=== PATIENT | female | born 1950 | race Caucasian/White ===

== ENCOUNTER 2017-02-24 12:42 | Inpatient (IN) | payer MEDICARE ==
[2017-02-24] MEDS ORDERED: ONDANSETRON HCL INJ/PF 4 MG/2 ML SDV IV ONE (13:36)
[2017-02-24] MEDS ORDERED: MORPHINE SULFATE 10 MG/ML INJ IV ONE (13:36)
--- NOTE | 2017-02-24 13:37 | ER Document Report ---
ED Medical Screen (RME) - General Chief Complaint: Nausea/Vomiting/Diarrhea Stated Complaint: VOMITING/DIARRHEA/WEAKNESS Information source: Patient Notes: 66-year-old female who had a colonoscopy 7 years ago which was normal presents with complaints of intermittent abdominal cramping sensation with bloody diarrhea. Patient notes she was treated for pneumonia with 10 days of antibiotics. Denies any fevers Bright red stool I have greeted and performed a rapid initial assessment of this patient. A comprehensive ED assessment and evaluation of the patient, analysis of test results and completion of the medical decision making process will be conducted by additional ED providers. PHYSICAL EXAMINATION: GENERAL: Well-appearing, well-nourished and in no acute distress. HEAD: Atraumatic, normocephalic. EYES: Pupils equal round extraocular movements intact, conjunctiva are normal. ENT: Nares patent NECK: Normal range of motion LUNGS: No respiratory distress Musculoskeletal: Normal range of motion NEUROLOGICAL: Normal speech, normal gait. PSYCH: Normal mood, normal affect. SKIN: Warm, Dry, normal turgor, no rashes or lesions noted. TRAVEL OUTSIDE OF THE [place] IN LAST 30 DAYS: No - Related Data Allergies/Adverse Reactions: No Known Allergies Allergy (Verified 02/24/17 13:21) Past Medical History Renal/ Medical History: Denies: Hx Peritoneal Dialysis Physical Exam - Vital signs Vitals: Temp Pulse Resp BP Pulse Ox 98.2 F 109 H 24 H 188/82 H 95 02/24/17 12:52 02/24/17 12:52 02/24/17 12:52 02/24/17 12:52 02/24/17 12:52 Course - Vital Signs Vital signs: Temp Pulse Resp BP Pulse Ox 98.2 F 109 H 24 H 188/82 H 95 02/24/17 12:52 02/24/17 12:52 02/24/17 12:52 02/24/17 12:52 02/24/17 12:52
[2017-02-24 14:11] LABS: ABSOLUTE LYMPHOCYTES (AUTO) 1.1 10^3/uL (0.5-4.7); ABSOLUTE MONOCYTES (AUTO) 0.5 10^3/uL (0.1-1.4); ABSOLUTE NEUT (AUTO) 15.4 10^3/uL (1.7-8.2); BASOPHILS % (AUTO) 0.2 % (0-2); HEMATOCRIT 43.6 % (36.0-47.0); HEMOGLOBIN 14.3 g/dL (12.0-15.5); HGB HCT DIFFERENCE -0.7; LYMPHOCYTES % (AUTO) 6.3 % (13-45); MEAN CORPUSCULAR HEMOGLOBIN 28.2 pg (27.0-33.4); MEAN CORPUSCULAR HGB CONC 32.8 g/dL (32.0-36.0); MEAN CORPUSCULAR VOLUME 86 fl (80-97); MONOCYTES % (AUTO) 3.2 % (3-13); RED BLOOD COUNT 5.08 10^6/uL (3.72-5.28); RED CELL DISTRIBUTION WIDTH 13.7 % (11.5-14.0); SEGMENTED NEUTROPHILS % (AUTO) 90.3 % (42-78)
--- NOTE | 2017-02-24 14:14 | ER Document Report ---
ED GI/ - General Mode of Arrival: Ambulatory Information source: Patient TRAVEL OUTSIDE OF THE [place] IN LAST 30 DAYS: No - HPI Patient complains to provider of: Vomiting Onset: Yesterday Timing/Duration: Sudden, Persistent Quality of pain: Cramping Associated symptoms: Diarrhea, Nausea, Vomiting, Other - Cramping <JULIO CHAVEZ - Last Filed: 02/24/17 14:09> <KRISTIN WHITT - Last Filed: 02/24/17 17:34> - General Chief Complaint: Nausea/Vomiting/Diarrhea Stated Complaint: VOMITING/DIARRHEA/WEAKNESS Notes: Patient is 66-year-old female presenting to the emergency department concerned of vomiting and diarrhea, onset last night. Patient describes her diarrhea as jellylike with blood. Patient also states she is experiencing some abdominal cramping. Patient states Lortab just felt like this before is when she had food poisoning. Patient also reports that she completed 10 days of antibiotics one week ago for pneumonia. Patient cannot remember the name of this antibiotic. (JULIO CHAVEZ) I contacted [facility] pharmacy and found the antibiotic she was on was doxycycline. (KRISTIN WHITT) - Related Data Allergies/Adverse Reactions: No Known Allergies Allergy (Verified 02/24/17 13:21) Past Medical History - General Information source: Patient - Social History Smoking Status: Never Smoker Frequency of alcohol use: None Family History: Reviewed & Not Pertinent Patient has suicidal ideation: No Patient has homicidal ideation: No - Past Medical History Cardiac Medical History: Reports: Hx Hypertension Endocrine Medical History: Reports: Hx Diabetes Mellitus Type 2 Renal/ Medical History: Denies: Hx Peritoneal Dialysis Past Surgical History: Reports: Hx Hysterectomy - And Bladder sling 2006 <JULIO CHAVEZ - Last Filed: 02/24/17 14:09> Review of Systems - Review of Systems Constitutional: No symptoms reported EENT: No symptoms reported Cardiovascular: No symptoms reported Respiratory: No symptoms reported Gastrointestinal: See HPI, Abdominal pain - Cramping, Diarrhea, Nausea, Vomiting Genitourinary: No symptoms reported Female Genitourinary: No symptoms reported Musculoskeletal: No symptoms reported Skin: No symptoms reported Hematologic/Lymphatic: No symptoms reported Neurological/Psychological: No symptoms reported -: Yes All other systems reviewed and negative <JULIO CHAVEZ - Last Filed: 02/24/17 14:09> Physical Exam - General General appearance: Alert - HEENT Head: Normocephalic, Atraumatic Eyes: Normal Pupils: PERRL - Respiratory Respiratory status: No respiratory distress Chest status: Nontender Breath sounds: Normal Chest palpation: Normal - Cardiovascular Rhythm: Extrasystoles Heart sounds: Normal auscultation Murmur: No - Abdominal Inspection: Obese - Soft Bowel sounds: Hyperactive Tenderness: Nontender - Back Back: Normal, Nontender - Extremities General upper extremity: Normal inspection, Nontender General lower extremity: Normal inspection, Nontender - Neurological Neuro grossly intact: Yes Cognition: Normal Orientation: AAOx4 [place] Coma Scale Eye Opening: Spontaneous [place] Coma Scale Verbal: Oriented [place] Coma Scale Motor: Obeys Commands Teodoro Coma Scale Total: 15 Speech: Normal - Psychological Associated symptoms: Normal affect, Normal mood - Skin Skin Temperature: Warm Skin Moisture: Dry Skin Color: Normal <JULIO CHAVEZ - Last Filed: 02/24/17 14:09> Course - Laboratory Result Diagrams: 02/24/17 13:40 02/24/17 13:40 <JULIO CHAVEZ - Last Filed: 02/24/17 14:09> - Laboratory Result Diagrams: 02/24/17 13:40 02/24/17 13:40 - Diagnostic Test Radiology reviewed: Image reviewed, Reports reviewed - Colitis involving the distal transverse colon, splenic flexure, and proximal descending colon. There is moderate atherosclerotic irregularity at the SMA origin with about 50% diameter narrowing. About 75% narrowing of the proximal left renal artery. - Consults Dr. Salinas Time consulted: 17:15 Consulted provider: will come to ER <KRISTIN WHITT - Last Filed: 02/24/17 17:34> - Vital Signs Vital signs: Temp Pulse Resp BP Pulse Ox 98.2 F 109 H 24 H 188/82 H 95 02/24/17 12:52 02/24/17 12:52 02/24/17 12:52 02/24/17 12:52 02/24/17 12:52 - Laboratory Laboratory results interpreted by me: 02/24/17 02/24/17 13:40 13:40 WBC 17.0 H Seg Neutrophils % 90.3 H Lymphocytes % 6.3 L Absolute Neutrophils 15.4 H BUN 21 H Glucose 219 H Discharge <JULIO CHAVEZ - Last Filed: 02/24/17 14:09> - Discharge Admitting Provider: Hospitalist Unit Admitted: Medical Floor <KRISTIN WHITT - Last Filed: 02/24/17 17:34> - Discharge Clinical Impression: Colitis, Atherosclerosis of superior mesenteric artery, Renal artery stenosis Condition: Stable Disposition: ADMITTED INPATIENT Scribe Documentation - Scribe Written by Scribe:: Julio Chavez 02/24/2017 1409 acting as scribe for :: Marine <JULIO CHAVEZ - Last Filed: 02/24/17 14:09>
[2017-02-24] MEDS: NORMAL SALINE 1000 ML 1,000 ML IV PRN ×3 (14:21→21:40)
[2017-02-24 14:33] LABS: ALANINE AMINOTRANSFERASE 34 U/L (9-52); ALBUMIN 4.8 g/dL (3.5-5.0); ALKALINE PHOSPHATASE 78 U/L (38-126); ANION GAP 17 (5-19); ASPARTATE AMINO TRANSFERASE 20 U/L (14-36); BILIRUBIN,DIRECT 0.4 mg/dL (0.0-0.4); BILIRUBIN,TOTAL 0.7 mg/dL (0.2-1.3); BLOOD UREA NITROGEN 21 mg/dL (7-20); CALCIUM 10.2 mg/dL (8.4-10.2); CARBON DIOXIDE 24 mmol/L (22-30); CHLORIDE 102 mmol/L (98-107); CREATININE RESULT 0.77 mg/dL (0.52-1.25); GLUCOSE 219 mg/dL (75-110); POTASSIUM 4.9 mmol/L (3.6-5.0); SODIUM 142.5 mmol/L (137-145); TOTAL PROTEIN 8.2 g/dL (6.3-8.2)
[2017-02-24] MEDS ORDERED: HYDRALAZINE HCL INJ/PF 20 MG/1 ML SDV IV ONE ×2 (14:51→15:52)
[2017-02-24] MEDS ORDERED: METRONIDAZOLE 500 MG/NS RTU 100 ML IV ONE (17:17)
[2017-02-24] MEDS ORDERED: LEVOFLOXACIN 750 MG/D5W RTU 150 ML IV ONE (17:17)
[2017-02-24] MEDS ORDERED: NORMAL SALINE 1000 ML 1,000 ML IV ONE (17:18)
[2017-02-24] MEDS ORDERED: ONDANSETRON HCL INJ/PF 4 MG/2 ML SDV ONE (18:11)
[2017-02-24] MEDS ORDERED: HYDRALAZINE HCL INJ/PF 20 MG/1 ML SDV IV PRN (18:55)
[2017-02-24] MEDS ORDERED: SODIUM CHLORIDE NASAL SPRAY 44 ML NASL PRN (22:11)
[2017-02-24] MEDS ORDERED: OXYMETAZOLINE HCL 0.05% NASAL SPRAY 15 ML BOTTLE ONE (22:26)
[2017-02-24] MEDS ORDERED: SODIUM CHLORIDE NASAL SPRAY 44 ML ONE (22:38)
[2017-02-24] MEDS: PANTOPRAZOLE SODIUM 40 MG VIAL IV SCH (23:14)
[2017-02-25 00:04] LABS: APPEARANCE,URINE CLEAR; BILIRUBIN,URINE NEGATIVE (NEGATIVE); GLUCOSE, URINE NEGATIVE (NEGATIVE); KETONES,URINE NEGATIVE (NEGATIVE); LEUKOCYTE ESTERASE,URINE LARGE (NEGATIVE); NITRITE,URINE NEGATIVE (NEGATIVE); PROTEIN,URINE NEGATIVE (NEGATIVE); URINE SPECIFIC GRAVITY 1.035; UROBILINOGEN,URINE NEGATIVE mg/dL (<2.0)
[2017-02-25] MEDS: METRONIDAZOLE 500 MG/NS RTU 100 ML IV SCH ×5 (00:49→23:09)
[2017-02-25] MEDS: ACETAMINOPHEN 325 MG TABLET PO PRN ×3 (03:09→21:41)
[2017-02-25 06:45] LABS: ABSOLUTE LYMPHOCYTES (AUTO) 2.1 10^3/uL (0.5-4.7); ABSOLUTE MONOCYTES (AUTO) 1.7 10^3/uL (0.1-1.4); ABSOLUTE NEUT (AUTO) 15.1 10^3/uL (1.7-8.2); BASOPHILS % (AUTO) 0.1 % (0-2); HEMATOCRIT 38.3 % (36.0-47.0); HEMOGLOBIN 12.5 g/dL (12.0-15.5); HGB HCT DIFFERENCE -0.8; LYMPHOCYTES % (AUTO) 11.3 % (13-45); MEAN CORPUSCULAR HEMOGLOBIN 27.9 pg (27.0-33.4); MEAN CORPUSCULAR HGB CONC 32.6 g/dL (32.0-36.0); MEAN CORPUSCULAR VOLUME 86 fl (80-97); MONOCYTES % (AUTO) 9.1 % (3-13); RED BLOOD COUNT 4.47 10^6/uL (3.72-5.28); RED CELL DISTRIBUTION WIDTH 13.8 % (11.5-14.0); SEGMENTED NEUTROPHILS % (AUTO) 79.5 % (42-78); WHITE BLOOD COUNT 18.9 10^3/uL (4.0-10.5)
[2017-02-25 06:54] LABS: PARTIAL THROMBOPLASTIN TIME 29.6 SEC (23.5-35.8); PROTHROMBIN TIME 13.9 SEC (11.4-15.4)
[2017-02-25 07:12] LABS: ALANINE AMINOTRANSFERASE 26 U/L (9-52); ALBUMIN 3.7 g/dL (3.5-5.0); ALKALINE PHOSPHATASE 52 U/L (38-126); ANION GAP 13 (5-19); ASPARTATE AMINO TRANSFERASE 19 U/L (14-36); BILIRUBIN,DIRECT 0.1 mg/dL (0.0-0.4); BILIRUBIN,TOTAL 0.6 mg/dL (0.2-1.3); BLOOD UREA NITROGEN 12 mg/dL (7-20); CALCIUM 9.2 mg/dL (8.4-10.2); CARBON DIOXIDE 23 mmol/L (22-30); CHLORIDE 107 mmol/L (98-107); CHOLESTEROL 254.94 mg/dL (0-200); CREATININE RESULT 0.76 mg/dL (0.52-1.25); Direct HDL 40 mg/dL (>40); GLUCOSE 165 mg/dL (75-110); POTASSIUM 4.2 mmol/L (3.6-5.0); SODIUM 142.8 mmol/L (137-145); TOTAL PROTEIN 6.3 g/dL (6.3-8.2); TRIGLYCERIDES 193 mg/dL (<150)
[2017-02-25 07:23] LABS: DIRECT LDL 152 mg/dL (<100)
[2017-02-25 07:25] LABS: VLDL CHOLESTEROL 38.6 mg/dL (10-31)
--- NOTE | 2017-02-25 07:45 | EKG REPORT ---
SEVERITY:- ABNORMAL ECG - SINUS TACHYCARDIA : Confirmed by: Bee Plummer 25-Feb-2017 07:43:57
[2017-02-25] MEDS ORDERED: DEXTROSE 40% GEL 15 GM TUBE PO PRN ×2 (08:00)
[2017-02-25] MEDS ORDERED: DEXTROSE 50%-WATER 25 GM/50 ML DISP.SYRIN IV PRN ×2 (08:00)
[2017-02-25] MEDS ORDERED: GLUCAGON,HUMAN RECOMB 1 MG INJ SUBCUT PRN (08:00)
--- NOTE | 2017-02-25 08:16 | PDOC H&P ---
History of Present Illness Admission Date/PCP: 02/24/17 18:49 Patient complains of: abdominal pain and rectal bleeding History of Present Illness: DAY GARAY is a 66 year old female Presented with 24-hour history of bloody diarrhea and abdominal pain Upon evaluation in the ED patient was diagnosed of ischemic colitis and subsequently admitted under hospitalist service for further evaluation and care Past Medical History Cardiac Medical History: Reports: Hypertension Endocrine Medical History: Reports: Diabetes Mellitus Type 2 Past Surgical History Past Surgical History: Reports: Hysterectomy - And Bladder sling 2006, Other - Last colonoscopy was 7 years ago was normal Social History Smoking Status: Never Smoker Frequency of Alcohol Use: Rare Hx Recreational Drug Use: No - Advance Directive Resuscitation Status: Full Code Surrogate healthcare decision maker:: Her Khoa Family History Family History: Reviewed & Not Pertinent Parental Family History Reviewed: Yes Children Family History Reviewed: Yes Sibling(s) Family History Reviewed.: Yes Medication/Allergy Home Medications: Lisinopril [Prinivil 40 mg Tablet] 40 mg PO QAM 02/24/17 Metformin HCl [Metformin HCl ER] 1,000 mg PO BID 02/24/17 Allergies/Adverse Reactions: No Known Allergies Allergy (Verified 02/24/17 13:21) Review of Systems Constitutional: ABSENT: chills, fever(s), headache(s), weight gain, weight loss Eyes: ABSENT: visual disturbances Ears: ABSENT: hearing changes Cardiovascular: ABSENT: chest pain, dyspnea on exertion, edema, orthropnea, palpitations Respiratory: ABSENT: cough, hemoptysis Gastrointestinal: PRESENT: as per HPI, abdominal pain, diarrhea, hematochezia, nausea. ABSENT: constipation, hematemesis, vomiting Genitourinary: ABSENT: dysuria, hematuria Musculoskeletal: ABSENT: joint swelling Integumentary: ABSENT: rash, wounds Neurological: ABSENT: abnormal gait, abnormal speech, confusion, dizziness, focal weakness, syncope Psychiatric: ABSENT: anxiety, depression, homidical ideation, suicidal ideation Endocrine: ABSENT: cold intolerance, heat intolerance, polydipsia, polyuria Hematologic/Lymphatic: ABSENT: easy bleeding, easy bruising Physical Exam Vital Signs: Temp Pulse Resp BP Pulse Ox 98.8 F 94 20 146/40 H 97 02/25/17 04:09 02/25/17 06:39 02/25/17 04:09 02/25/17 06:35 02/25/17 04:09 Intake & Output 02/24/17 02/25/17 02/26/17 00:59 00:59 00:59 Intake Total 0 Output Total 300 800 Balance -300 -800 Weight 73.2 kg General appearance: PRESENT: mild distress, well-developed, well-nourished, other - She does look ill Head exam: PRESENT: atraumatic, normocephalic Eye exam: PRESENT: conjunctiva pink, EOMI, PERRLA. ABSENT: scleral icterus Ear exam: PRESENT: normal external ear exam Mouth exam: PRESENT: moist, tongue midline Neck exam: ABSENT: carotid bruit, JVD, lymphadenopathy, thyromegaly Respiratory exam: PRESENT: clear to auscultation sorin. ABSENT: rales, rhonchi, wheezes Cardiovascular exam: PRESENT: RRR. ABSENT: diastolic murmur, rubs, systolic murmur Pulses: PRESENT: normal dorsalis pedis pul Vascular exam: PRESENT: normal capillary refill GI/Abdominal exam: PRESENT: normal bowel sounds, soft, tenderness. ABSENT: distended, guarding, mass, organolmegaly, rebound Rectal exam: PRESENT: deferred Extremities exam: PRESENT: full ROM. ABSENT: calf tenderness, clubbing, pedal edema Neurological exam: PRESENT: alert, awake, oriented to person, oriented to place , oriented to time, oriented to situation, CN II-XII grossly intact. ABSENT: motor sensory deficit Psychiatric exam: PRESENT: appropriate affect, normal mood. ABSENT: homicidal ideation, suicidal ideation Skin exam: PRESENT: dry, intact, warm. ABSENT: cyanosis, rash Results Laboratory Results: 02/25/17 06:09 02/25/17 06:09 02/24/17 02/25/17 02/25/17 23:00 06:09 06:09 WBC 18.9 H RBC 4.47 Hgb 12.5 Hct 38.3 MCV 86 MCH 27.9 MCHC 32.6 RDW 13.8 Plt Count 266 Seg Neutrophils % 79.5 H Lymphocytes % 11.3 L Monocytes % 9.1 Eosinophils % 0.0 Basophils % 0.1 Absolute Neutrophils 15.1 H Absolute Lymphocytes 2.1 Absolute Monocytes 1.7 H Absolute Eosinophils 0.0 Absolute Basophils 0.0 Sodium 142.8 Potassium 4.2 Chloride 107 Carbon Dioxide 23 Anion Gap 13 BUN 12 Creatinine 0.76 Est GFR ( Amer) > 60 Est GFR (Non-Af Amer) > 60 Glucose 165 H Calcium 9.2 Total Bilirubin 0.6 AST 19 ALT 26 Alkaline Phosphatase 52 Total Protein 6.3 Albumin 3.7 Triglycerides 193 H Cholesterol 254.94 H LDL Cholesterol Direct 152 H VLDL Cholesterol 38.6 H HDL Cholesterol 40 TSH Urine Color STRAW Urine Appearance CLEAR Urine pH 5.0 Ur Specific [place] 1.035 Urine Protein NEGATIVE Urine Glucose (UA) NEGATIVE Urine Ketones NEGATIVE Urine Blood SMALL H Urine Nitrite NEGATIVE Ur Leukocyte Esterase LARGE H Urine WBC (Auto) 20 Urine RBC (Auto) 3 02/25/17 06:09 WBC RBC Hgb Hct MCV MCH MCHC RDW Plt Count Seg Neutrophils % Lymphocytes % Monocytes % Eosinophils % Basophils % Absolute Neutrophils Absolute Lymphocytes Absolute Monocytes Absolute Eosinophils Absolute Basophils Sodium Potassium Chloride Carbon Dioxide Anion Gap BUN Creatinine Est GFR ( Amer) Est GFR (Non-Af Amer) Glucose Calcium Total Bilirubin AST ALT Alkaline Phosphatase Total Protein Albumin Triglycerides Cholesterol LDL Cholesterol Direct VLDL Cholesterol HDL Cholesterol TSH 5.37 H Urine Color Urine Appearance Urine pH Ur Specific [place] Urine Protein Urine Glucose (UA) Urine Ketones Urine Blood Urine Nitrite Ur Leukocyte Esterase Urine WBC (Auto) Urine RBC (Auto) Impressions: Abdomen/Pelvis CT 02/24/17 00:00 IMPRESSION: Colitis involving the distal transverse colon, splenic flexure, proximal descending colon. Assessment & Plan - Diagnosis (1) Acute ischemic colitis Is this a current diagnosis for this admission?: Yes (2) Hypertension Qualifiers: Hypertension type: essential hypertension Qualified Code(s): I10 - Essential (primary) hypertension Is this a current diagnosis for this admission?: Yes (3) Atherosclerosis of superior mesenteric artery Is this a current diagnosis for this admission?: Yes (4) Renal artery stenosis Is this a current diagnosis for this admission?: Yes - Time Time Spent with patient: We will admit the patient to IMCU ;she will be monitored patient will be started on Cipro Flagyl We will treat her hypertension with keep her blood pressure systolic over 160 Patient will be treated with IV fluids clear liquids as tolerated Dr. Kirby gastroenterology will see patient in a.m. Patient will need to be referred to vascular surgery as an outpatient regarding the renal artery stenosis Time Spent: Greater than 70 Minutes - Inpatient Certification Based on my medical assessment, after consideration of the patient's comorbidities, presenting symptoms, or acuity I expect that the services needed warrant INPATIENT care.: Yes I certify that my determination is in accordance with my understanding of Medicare's requirements for reasonable and necessary INPATIENT services [42 CFR 412.3e].: Yes Medical Necessity: Need Close Monitoring Due to Risk of Patient Decompensation, Need For IV Fluids, Need For Continuous Telemetry Monitoring
--- NOTE | 2017-02-25 08:35 | PDOC PROGRESS REPORT ---
Subjective Progress Note for:: 02/25/17 Subjective:: Patient's history abdominal pain is slightly improved no nausea no vomiting no fever no chills Physical Exam Vital Signs: Temp Pulse Resp BP Pulse Ox 98.8 F 94 20 146/40 H 97 02/25/17 04:09 02/25/17 06:39 02/25/17 04:09 02/25/17 06:35 02/25/17 04:09 Intake & Output 02/24/17 02/25/17 02/26/17 00:59 00:59 00:59 Intake Total 0 696 Output Total 300 800 Balance -300 -104 Weight 73.2 kg General appearance: PRESENT: no acute distress, well-developed, well-nourished Head exam: PRESENT: atraumatic, normocephalic Eye exam: PRESENT: conjunctiva pink, EOMI, PERRLA. ABSENT: scleral icterus Ear exam: PRESENT: normal external ear exam Mouth exam: PRESENT: moist, tongue midline Neck exam: ABSENT: carotid bruit, JVD, lymphadenopathy, thyromegaly Respiratory exam: PRESENT: clear to auscultation sorin. ABSENT: rales, rhonchi, wheezes Cardiovascular exam: PRESENT: RRR. ABSENT: diastolic murmur, rubs, systolic murmur Pulses: PRESENT: normal dorsalis pedis pul Vascular exam: PRESENT: normal capillary refill GI/Abdominal exam: PRESENT: normal bowel sounds, soft, tenderness - Diffuse. ABSENT: distended, guarding, mass, organolmegaly, rebound Rectal exam: PRESENT: deferred Extremities exam: PRESENT: full ROM. ABSENT: calf tenderness, clubbing, pedal edema Neurological exam: PRESENT: alert, awake, oriented to person, oriented to place , oriented to time, oriented to situation, CN II-XII grossly intact. ABSENT: motor sensory deficit Psychiatric exam: PRESENT: appropriate affect, normal mood. ABSENT: homicidal ideation, suicidal ideation Skin exam: PRESENT: dry, intact, warm. ABSENT: cyanosis, rash Results Laboratory Results: 02/25/17 06:09 02/25/17 06:09 02/24/17 02/25/17 02/25/17 23:00 06:09 06:09 WBC 18.9 H RBC 4.47 Hgb 12.5 Hct 38.3 MCV 86 MCH 27.9 MCHC 32.6 RDW 13.8 Plt Count 266 Seg Neutrophils % 79.5 H Lymphocytes % 11.3 L Monocytes % 9.1 Eosinophils % 0.0 Basophils % 0.1 Absolute Neutrophils 15.1 H Absolute Lymphocytes 2.1 Absolute Monocytes 1.7 H Absolute Eosinophils 0.0 Absolute Basophils 0.0 Sodium 142.8 Potassium 4.2 Chloride 107 Carbon Dioxide 23 Anion Gap 13 BUN 12 Creatinine 0.76 Est GFR ( Amer) > 60 Est GFR (Non-Af Amer) > 60 Glucose 165 H Calcium 9.2 Total Bilirubin 0.6 AST 19 ALT 26 Alkaline Phosphatase 52 Total Protein 6.3 Albumin 3.7 Triglycerides 193 H Cholesterol 254.94 H LDL Cholesterol Direct 152 H VLDL Cholesterol 38.6 H HDL Cholesterol 40 TSH Urine Color STRAW Urine Appearance CLEAR Urine pH 5.0 Ur Specific [place] 1.035 Urine Protein NEGATIVE Urine Glucose (UA) NEGATIVE Urine Ketones NEGATIVE Urine Blood SMALL H Urine Nitrite NEGATIVE Ur Leukocyte Esterase LARGE H Urine WBC (Auto) 20 Urine RBC (Auto) 3 02/25/17 06:09 WBC RBC Hgb Hct MCV MCH MCHC RDW Plt Count Seg Neutrophils % Lymphocytes % Monocytes % Eosinophils % Basophils % Absolute Neutrophils Absolute Lymphocytes Absolute Monocytes Absolute Eosinophils Absolute Basophils Sodium Potassium Chloride Carbon Dioxide Anion Gap BUN Creatinine Est GFR ( Amer) Est GFR (Non-Af Amer) Glucose Calcium Total Bilirubin AST ALT Alkaline Phosphatase Total Protein Albumin Triglycerides Cholesterol LDL Cholesterol Direct VLDL Cholesterol HDL Cholesterol TSH 5.37 H Urine Color Urine Appearance Urine pH Ur Specific [place] Urine Protein Urine Glucose (UA) Urine Ketones Urine Blood Urine Nitrite Ur Leukocyte Esterase Urine WBC (Auto) Urine RBC (Auto) Impressions: Abdomen/Pelvis CT 02/24/17 00:00 IMPRESSION: Colitis involving the distal transverse colon, splenic flexure, proximal descending colon. Assessment & Plan - Diagnosis (1) Acute ischemic colitis Is this a current diagnosis for this admission?: YesPlan: will keep the patient nothing by mouth as per Dr. Dr. Kirby Continue Cipro Flagyl continue IV fluids (2) Hypertension Qualifiers: Hypertension type: essential hypertension Qualified Code(s): I10 - Essential (primary) hypertension Is this a current diagnosis for this admission?: YesPlan: Resume patient's meds keep blood pressure systolic over 140 to assure that there is good perfusion of the gut (3) Atherosclerosis of superior mesenteric artery Is this a current diagnosis for this admission?: Yes (4) Renal artery stenosis Is this a current diagnosis for this admission?: YesPlan: Patient will need to be referred to vascular surgery as an outpatient after discharge (5) Hyperlipidemia Qualifiers: Hyperlipidemia type: unspecified Qualified Code(s): E78.5 - Hyperlipidemia, unspecified Is this a current diagnosis for this admission?: YesPlan: We'll initiate Lipitor 80 mg daily - Time Time Spent with patient: 35 or more minutes
[2017-02-25] MEDS ORDERED: HYDRALAZINE HCL INJ/PF 20 MG/1 ML SDV IV PRN (08:38)
[2017-02-25] MEDS: PANTOPRAZOLE SODIUM 40 MG VIAL IV SCH ×2 (09:13→21:40)
[2017-02-25] MEDS: CIPROFLOXACIN 400 MG/D5W RTU 200 ML IV SCH ×2 (09:13→21:42)
[2017-02-25] MEDS: LISINOPRIL 10 MG TABLET PO SCH ×2 (09:14→21:40)
[2017-02-25] MEDS ORDERED: LISINOPRIL 10 MG PO SCH (10:00)
[2017-02-25 11:27] LABS: FREE T3 2.55 pg/mL (2.77-5.27)
[2017-02-25] MEDS: NORMAL SALINE 1000 ML 1,000 ML IV PRN (11:44)
--- NOTE | 2017-02-25 11:57 | PDOC CONSULTATION ---
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 Past Medical History Cardiac Medical History: Reports: Hypertension Endocrine Medical History: Reports: Diabetes Mellitus Type 2 Past Surgical History Past Surgical History: Reports: Hysterectomy - And Bladder sling 2006, Other - Last colonoscopy was 7 years ago was normal Social History Smoking Status: Never Smoker Frequency of Alcohol Use: Rare Hx Recreational Drug Use: No - Advance Directive Resuscitation Status: Full Code Family History Family History: Reviewed & Not Pertinent Parental Family History Reviewed: Yes Children Family History Reviewed: Unknown Sibling(s) Family History Reviewed.: Unknown Medication/Allergy Home Medications: Lisinopril [Prinivil 40 mg Tablet] 40 mg PO QAM 02/24/17 Metformin HCl [Metformin HCl ER] 1,000 mg PO BID 02/24/17 Allergies/Adverse Reactions: No Known Allergies Allergy (Verified 02/24/17 13:21) Review of Systems Constitutional: ABSENT: fever(s), headache(s), night sweats, weakness Eyes: ABSENT: visual disturbances Ears: ABSENT: hearing changes Nose, Mouth, and Throat: ABSENT: mouth pain, sore throat Cardiovascular: ABSENT: edema, palpitations Respiratory: ABSENT: dyspnea, hemoptysis Gastrointestinal: PRESENT: abdominal pain, diarrhea, heartburn, hematochezia. ABSENT: nausea, vomiting Genitourinary: ABSENT: dysuria, hematuria Musculoskeletal: ABSENT: deformity Integumentary: ABSENT: lesions Neurological: ABSENT: syncope, tingling, tremor(s), vertigo, weakness Endocrine: ABSENT: polydipsia, polyphagia, polyuria Physical Exam Vital Signs: Temp Pulse Resp BP Pulse Ox 99.4 F 94 20 171/59 H 98 02/25/17 08:37 02/25/17 10:00 02/25/17 08:37 02/25/17 08:37 02/25/17 08:37 Intake & Output 02/24/17 02/25/17 02/26/17 06:59 06:59 06:59 Intake Total 696 Output Total 1100 Balance -404 Weight 73.2 kg General appearance: PRESENT: no acute distress, well-developed, well-nourished Head exam: PRESENT: atraumatic, normocephalic Eye exam: PRESENT: EOMI, PERRLA. ABSENT: periorbital swelling, scleral icterus Mouth exam: PRESENT: moist, neck supple Throat exam: ABSENT: tonsillar exudate, tonsillogmegaly Neck exam: ABSENT: meningismus, tenderness, thyromegaly Respiratory exam: PRESENT: clear to auscultation sorin, symmetrical, unlabored. ABSENT: chest wall tenderness, tachypnea, wheezes Cardiovascular exam: PRESENT: RRR, +S1, +S2 Vascular exam: ABSENT: pallor GI/Abdominal exam: PRESENT: soft, tenderness. ABSENT: Spear's sign, rebound, rigid Gentrourinary exam: ABSENT: indwelling catheter Extremities exam: ABSENT: joint swelling Musculoskeletal exam: PRESENT: full ROM Neurological exam: PRESENT: alert, altered, oriented to person, oriented to place, oriented to time, oriented to situation, CN II-XII grossly intact Psychiatric exam: PRESENT: appropriate affect Skin exam: PRESENT: normal color. ABSENT: mottled, pallor, petechiae, urticaria , vesicles Results Laboratory Results: 02/25/17 06:09 02/25/17 06:09 02/24/17 02/25/17 02/25/17 23:00 06:09 06:09 WBC 18.9 H RBC 4.47 Hgb 12.5 Hct 38.3 MCV 86 MCH 27.9 MCHC 32.6 RDW 13.8 Plt Count 266 Seg Neutrophils % 79.5 H Lymphocytes % 11.3 L Monocytes % 9.1 Eosinophils % 0.0 Basophils % 0.1 Absolute Neutrophils 15.1 H Absolute Lymphocytes 2.1 Absolute Monocytes 1.7 H Absolute Eosinophils 0.0 Absolute Basophils 0.0 Sodium 142.8 Potassium 4.2 Chloride 107 Carbon Dioxide 23 Anion Gap 13 BUN 12 Creatinine 0.76 Est GFR ( Amer) > 60 Est GFR (Non-Af Amer) > 60 Glucose 165 H Calcium 9.2 Total Bilirubin 0.6 AST 19 ALT 26 Alkaline Phosphatase 52 Total Protein 6.3 Albumin 3.7 Triglycerides 193 H Cholesterol 254.94 H LDL Cholesterol Direct 152 H VLDL Cholesterol 38.6 H HDL Cholesterol 40 TSH Free T4 Free T3 pg/mL Urine Color STRAW Urine Appearance CLEAR Urine pH 5.0 Ur Specific Barco 1.035 Urine Protein NEGATIVE Urine Glucose (UA) NEGATIVE Urine Ketones NEGATIVE Urine Blood SMALL H Urine Nitrite NEGATIVE Ur Leukocyte Esterase LARGE H Urine WBC (Auto) 20 Urine RBC (Auto) 3 02/25/17 02/25/17 06:09 06:09 WBC RBC Hgb Hct MCV MCH MCHC RDW Plt Count Seg Neutrophils % Lymphocytes % Monocytes % Eosinophils % Basophils % Absolute Neutrophils Absolute Lymphocytes Absolute Monocytes Absolute Eosinophils Absolute Basophils Sodium Potassium Chloride Carbon Dioxide Anion Gap BUN Creatinine Est GFR ( Amer) Est GFR (Non-Af Amer) Glucose Calcium Total Bilirubin AST ALT Alkaline Phosphatase Total Protein Albumin Triglycerides Cholesterol LDL Cholesterol Direct VLDL Cholesterol HDL Cholesterol TSH 5.37 H Free T4 0.99 Free T3 pg/mL 2.55 L Urine Color Urine Appearance Urine pH Ur Specific Barco Urine Protein Urine Glucose (UA) Urine Ketones Urine Blood Urine Nitrite Ur Leukocyte Esterase Urine WBC (Auto) Urine RBC (Auto) Impressions: Abdomen/Pelvis CT 02/24/17 00:00 IMPRESSION: Colitis involving the distal transverse colon, splenic flexure, proximal descending colon. Assessment & Plan - Diagnosis (1) GERD (gastroesophageal reflux disease) Plan: she is only on an H2 tamir at home will start her on a PPI for now will need to have it IV once patient is able to take oral, will switch (2) Acute ischemic colitis Is this a current diagnosis for this admission?: YesPlan: presentation is consistent with ischemic colitis she does have a stenosis of her SMA will need to maintain her pressure for adequate perfusion follow up on H/H no colonoscopy is indicated for now continue antibiotics for now check C.Diff for possible superinfection will need to have follow up with vascular surgery for consideration of stenting as an outpatient - Time Time Spent: 50 to 70 Minutes
[2017-02-25] MEDS: ATORVASTATIN CALCIUM 80 MG TABLET PO SCH (21:40)
[2017-02-25 23:09] LABS: HEMATOCRIT 33.6 % (36.0-47.0); HGB HCT DIFFERENCE -0.6; MEAN CORPUSCULAR HGB CONC 32.7 g/dL (32.0-36.0); MEAN CORPUSCULAR VOLUME 86 fl (80-97); RED BLOOD COUNT 3.92 10^6/uL (3.72-5.28); RED CELL DISTRIBUTION WIDTH 13.8 % (11.5-14.0); WHITE BLOOD COUNT 14.6 10^3/uL (4.0-10.5)
[2017-02-26] MEDS: METRONIDAZOLE 500 MG/NS RTU 100 ML IV SCH ×3 (05:08→17:26)
[2017-02-26] MEDS: NORMAL SALINE 1000 ML 1,000 ML IV PRN (05:10)
[2017-02-26] MEDS: PANTOPRAZOLE SODIUM 40 MG VIAL IV SCH ×2 (09:29→21:30)
[2017-02-26] MEDS: LISINOPRIL 10 MG TABLET PO SCH ×3 (09:29→21:30)
[2017-02-26] MEDS: CIPROFLOXACIN 400 MG/D5W RTU 200 ML IV SCH ×2 (09:30→21:30)
--- NOTE | 2017-02-26 09:45 | PDOC PROGRESS REPORT ---
Subjective Progress Note for:: 02/26/17 Subjective:: Patient is doing extremely well She has diarrhea , but rectal bleeding has subsided Leukocytosis is improving She is tolerating now clear liquid diet Physical Exam Vital Signs: Temp Pulse Resp BP Pulse Ox 98.4 F 64 16 133/71 H 98 02/26/17 07:37 02/26/17 08:47 02/26/17 07:37 02/26/17 07:37 02/26/17 07:37 Intake & Output 02/25/17 02/26/17 02/27/17 00:59 00:59 00:59 Intake Total 0 2828 1671 Output Total 300 2900 600 Balance -300 -72 1071 Weight 73.2 kg 73.3 kg General appearance: PRESENT: no acute distress, well-developed, well-nourished Head exam: PRESENT: atraumatic, normocephalic Eye exam: PRESENT: conjunctiva pink, EOMI, PERRLA. ABSENT: scleral icterus Ear exam: PRESENT: normal external ear exam Mouth exam: PRESENT: moist, tongue midline Neck exam: ABSENT: carotid bruit, JVD, lymphadenopathy, thyromegaly Respiratory exam: PRESENT: clear to auscultation sorin. ABSENT: rales, rhonchi, wheezes Cardiovascular exam: PRESENT: RRR. ABSENT: diastolic murmur, rubs, systolic murmur Pulses: PRESENT: normal dorsalis pedis pul Vascular exam: PRESENT: normal capillary refill GI/Abdominal exam: PRESENT: normal bowel sounds, soft, tenderness - Very slight tenderness remains no guarding no rebound. ABSENT: distended, guarding, mass, organolmegaly, rebound Rectal exam: PRESENT: deferred Extremities exam: PRESENT: full ROM. ABSENT: calf tenderness, clubbing, pedal edema Neurological exam: PRESENT: alert, awake, oriented to person, oriented to place , oriented to time, oriented to situation, CN II-XII grossly intact. ABSENT: motor sensory deficit Psychiatric exam: PRESENT: appropriate affect, normal mood. ABSENT: homicidal ideation, suicidal ideation Skin exam: PRESENT: dry, intact, warm. ABSENT: cyanosis, rash Results Laboratory Results: 02/25/17 22:50 02/25/17 06:09 02/25/17 02/25/17 06:09 22:50 WBC 14.6 H RBC 3.92 Hgb 11.0 L Hct 33.6 L MCV 86 MCH 28.0 MCHC 32.7 RDW 13.8 Plt Count 219 Free T4 0.99 Free T3 pg/mL 2.55 L Impressions: Abdomen/Pelvis CT 02/24/17 00:00 IMPRESSION: Colitis involving the distal transverse colon, splenic flexure, proximal descending colon. Assessment & Plan - Diagnosis (1) Acute ischemic colitis Is this a current diagnosis for this admission?: Yes (2) Hypertension Qualifiers: Hypertension type: essential hypertension Qualified Code(s): I10 - Essential (primary) hypertension Is this a current diagnosis for this admission?: Yes (3) Atherosclerosis of superior mesenteric artery Is this a current diagnosis for this admission?: Yes (4) Renal artery stenosis Is this a current diagnosis for this admission?: Yes (5) Hyperlipidemia Qualifiers: Hyperlipidemia type: unspecified Qualified Code(s): E78.5 - Hyperlipidemia, unspecified Is this a current diagnosis for this admission?: Yes - Time Time Spent with patient: Continue the same management Repeat CBC BMP in a.m. Clear liquids by mouth We will transfer patient to medical unit Time Spent with patient: 25-34 minutes
[2017-02-26] MEDS ORDERED: NORMAL SALINE 1000 ML 1,000 ML IV PRN (09:46)
[2017-02-26] MEDS: LEVOTHYROXINE SODIUM 0.025 MG TABLET PO SCH (10:35)
--- NOTE | 2017-02-26 12:09 | PDOC PROGRESS REPORT ---
Subjective Progress Note for:: 02/26/17 Subjective:: has improved clinically Leukocytosis improving some diarrhea, no further bleeding patient tolerating clear liquids denies any fever or chills can advance to full liquids patient denies any melena there is no nausea or vomiting Physical Exam Vital Signs: Temp Pulse Resp BP Pulse Ox 98.4 F 64 16 133/71 H 98 02/26/17 07:37 02/26/17 08:47 02/26/17 07:37 02/26/17 07:37 02/26/17 07:37 Intake & Output 02/25/17 02/26/17 02/27/17 06:59 06:59 06:59 Intake Total 696 3803 Output Total 1100 2700 Balance -404 1103 Weight 73.2 kg 73.3 kg General appearance: PRESENT: no acute distress, well-developed, well-nourished Head exam: PRESENT: atraumatic, normocephalic Eye exam: PRESENT: EOMI, PERRLA. ABSENT: nystagmus, periorbital swelling, scleral icterus Mouth exam: PRESENT: moist Throat exam: ABSENT: tonsillar exudate, tonsillogmegaly Neck exam: ABSENT: meningismus, tenderness, thyromegaly Cardiovascular exam: PRESENT: RRR, +S1, +S2 GI/Abdominal exam: PRESENT: soft. ABSENT: Spear's sign, rebound, rigid Extremities exam: ABSENT: joint swelling Musculoskeletal exam: PRESENT: full ROM Neurological exam: PRESENT: oriented to time, oriented to situation, reflexes normal, CN II-XII grossly intact Skin exam: PRESENT: normal color. ABSENT: mottled, pallor, urticaria, vesicles Results Laboratory Results: 02/25/17 22:50 02/25/17 06:09 02/25/17 22:50 WBC 14.6 H RBC 3.92 Hgb 11.0 L Hct 33.6 L MCV 86 MCH 28.0 MCHC 32.7 RDW 13.8 Plt Count 219 Impressions: Abdomen/Pelvis CT 02/24/17 00:00 IMPRESSION: Colitis involving the distal transverse colon, splenic flexure, proximal descending colon. Assessment & Plan - Diagnosis (1) GERD (gastroesophageal reflux disease) Plan: continue with PPI since tolerating oral feedings, switch to oral PPI (2) Acute ischemic colitis Is this a current diagnosis for this admission?: YesPlan: improving, continue antibiotics advance to full liquids outpatient follow up with vascular surgery - Time Time Spent with patient: 15-24 minutes
--- NOTE | 2017-02-26 15:29 | Physician Advisory Note ---
Physician Advisor ProgressNote .: Pursuant to the plan for [facility], I have reviewed the medical record for this patient. Physician Advisor Statement: Possible documentation opportunities if attending agrees: 1. "SIRS, present on admission, due to acute ischemic colitis" 2. "Anemia of acute blood loss due to acute ischemic colitis" As always, if concerned about any unstable VS or abnormal labs, please comment on them & note what doing about them, & please document each day the potential clinical problems you are concerned could occur if pt not kept in hospital for tx at this time. Thanks for your help with documentation accuracy/specificity improvement! Milla Valdez MD [facility] Physician Advisor, Fellow of Hospital Medicine
[2017-02-26] MEDS: ATORVASTATIN CALCIUM 80 MG TABLET PO SCH (21:30)
[2017-02-27] MEDS: METRONIDAZOLE 500 MG/NS RTU 100 ML IV SCH ×3 (00:49→12:00)
[2017-02-27 05:15] LABS: ABSOLUTE EOSINOPHILS # (AUTO) 0.1 10^3/uL (0.0-0.6); ABSOLUTE LYMPHOCYTES (AUTO) 2.1 10^3/uL (0.5-4.7); ABSOLUTE MONOCYTES (AUTO) 1.3 10^3/uL (0.1-1.4); BASOPHILS % (AUTO) 0.3 % (0-2); EOSINOPHILS % (AUTO) 0.8 % (0-6); HEMATOCRIT 35.1 % (36.0-47.0); HEMOGLOBIN 11.5 g/dL (12.0-15.5); HGB HCT DIFFERENCE -0.6; LYMPHOCYTES % (AUTO) 18.4 % (13-45); MEAN CORPUSCULAR HEMOGLOBIN 28.2 pg (27.0-33.4); MEAN CORPUSCULAR HGB CONC 32.7 g/dL (32.0-36.0); MEAN CORPUSCULAR VOLUME 86 fl (80-97); RED BLOOD COUNT 4.07 10^6/uL (3.72-5.28); RED CELL DISTRIBUTION WIDTH 13.7 % (11.5-14.0); SEGMENTED NEUTROPHILS % (AUTO) 69.5 % (42-78); WHITE BLOOD COUNT 11.5 10^3/uL (4.0-10.5)
[2017-02-27 05:44] LABS: ANION GAP 12 (5-19); BLOOD UREA NITROGEN 10 mg/dL (7-20); CALCIUM 9.2 mg/dL (8.4-10.2); CARBON DIOXIDE 26 mmol/L (22-30); CHLORIDE 107 mmol/L (98-107); CREATININE RESULT 0.77 mg/dL (0.52-1.25); GLUCOSE 132 mg/dL (75-110); POTASSIUM 3.6 mmol/L (3.6-5.0); SODIUM 145.3 mmol/L (137-145)
[2017-02-27] MEDS: PANTOPRAZOLE SODIUM 40 MG VIAL IV SCH (09:50)
[2017-02-27] MEDS: CIPROFLOXACIN 400 MG/D5W RTU 200 ML IV SCH (09:50)
[2017-02-27] MEDS: LEVOTHYROXINE SODIUM 0.025 MG TABLET PO SCH (09:51)
[2017-02-27] MEDS: LISINOPRIL 10 MG TABLET PO SCH ×2 (09:51→21:49)
--- NOTE | 2017-02-27 10:04 | PDOC PROGRESS REPORT ---
Subjective Progress Note for:: 02/27/17 Subjective:: clinically improved can advance diet continue antibiotics for 2 weeks patient does have stenosis and SMA and renal arteries will need vascular surgery referral as an outpatient no further abdominal pain no fever or chills no rectal bleeding H/H is stable Physical Exam Vital Signs: Temp Pulse Resp BP Pulse Ox 98.3 F 82 18 174/81 H 98 02/27/17 07:30 02/27/17 07:30 02/27/17 07:30 02/27/17 07:30 02/27/17 07:30 Intake & Output 02/26/17 02/27/17 02/28/17 06:59 06:59 06:59 Intake Total 3803 2674 Output Total 2700 Balance 1103 2674 Weight 73.3 kg 74.2 kg General appearance: PRESENT: no acute distress, well-developed, well-nourished Head exam: PRESENT: atraumatic, normocephalic Eye exam: PRESENT: EOMI, PERRLA. ABSENT: scleral icterus Mouth exam: PRESENT: neck supple Throat exam: ABSENT: tonsillar exudate Neck exam: ABSENT: carotid bruit, JVD, meningismus Respiratory exam: PRESENT: clear to auscultation sorin, symmetrical. ABSENT: tachypnea Cardiovascular exam: PRESENT: RRR, +S1, +S2 GI/Abdominal exam: PRESENT: soft. ABSENT: Spear's sign, rebound, rigid Extremities exam: ABSENT: joint swelling Musculoskeletal exam: PRESENT: full ROM Neurological exam: PRESENT: oriented to time, oriented to situation, reflexes normal Skin exam: PRESENT: normal color. ABSENT: mottled, pallor, urticaria Results Laboratory Results: 02/27/17 03:44 02/27/17 03:44 02/27/17 02/27/17 03:44 03:44 WBC 11.5 H RBC 4.07 Hgb 11.5 L Hct 35.1 L MCV 86 MCH 28.2 MCHC 32.7 RDW 13.7 Plt Count 231 Seg Neutrophils % 69.5 Lymphocytes % 18.4 Monocytes % 11.0 Eosinophils % 0.8 Basophils % 0.3 Absolute Neutrophils 8.0 Absolute Lymphocytes 2.1 Absolute Monocytes 1.3 Absolute Eosinophils 0.1 Absolute Basophils 0.0 Sodium 145.3 H Potassium 3.6 Chloride 107 Carbon Dioxide 26 Anion Gap 12 BUN 10 Creatinine 0.77 Est GFR ( Amer) > 60 Est GFR (Non-Af Amer) > 60 Glucose 132 H Calcium 9.2 Impressions: Abdomen/Pelvis CT 02/24/17 00:00 IMPRESSION: Colitis involving the distal transverse colon, splenic flexure, proximal descending colon. Assessment & Plan - Diagnosis (1) GERD (gastroesophageal reflux disease) Plan: oral PPI (2) Acute ischemic colitis Is this a current diagnosis for this admission?: YesPlan: clinically improved hopefully can be discharged if no other further issues WBC almost normalized will need to have lipid control she had not been complaint with her cholesterol lowering medication in the past - Time Time Spent with patient: 15-24 minutes
[2017-02-27] MEDS ORDERED: LOPERAMIDE HCL 2 MG CAPSULE PO PRN (13:46)
[2017-02-27] MEDS ORDERED: ATORVASTATIN CALCIUM 80 MG TABLET PO SCH (13:47)
[2017-02-27] MEDS ORDERED: LOPERAMIDE HCL 2 MG CAPSULE PO ONE (14:30)
--- NOTE | 2017-02-27 14:56 | PDOC PROGRESS REPORT ---
Subjective Progress Note for:: 02/27/17 Subjective:: Patient is doing well but the diarrhea is persistent Abdominal pains improved no fever no chills Diarrhea is profuse 10-15 bowel movements a day Physical Exam Vital Signs: Temp Pulse Resp BP Pulse Ox 98.4 F 74 18 179/74 H 99 02/27/17 11:27 02/27/17 11:27 02/27/17 11:27 02/27/17 11:27 02/27/17 11:27 Intake & Output 02/26/17 02/27/17 02/28/17 00:59 00:59 00:59 Intake Total 2828 3218 1127 Output Total 2900 600 Balance -72 2618 1127 Weight 73.2 kg 73.3 kg 74.2 kg General appearance: PRESENT: no acute distress, well-developed, well-nourished Head exam: PRESENT: atraumatic, normocephalic Eye exam: PRESENT: conjunctiva pink, EOMI, PERRLA. ABSENT: scleral icterus Ear exam: PRESENT: normal external ear exam Mouth exam: PRESENT: moist, tongue midline Neck exam: ABSENT: carotid bruit, JVD, lymphadenopathy, thyromegaly Respiratory exam: PRESENT: clear to auscultation sorin. ABSENT: rales, rhonchi, wheezes Cardiovascular exam: PRESENT: RRR. ABSENT: diastolic murmur, rubs, systolic murmur Pulses: PRESENT: normal dorsalis pedis pul Vascular exam: PRESENT: normal capillary refill GI/Abdominal exam: PRESENT: normal bowel sounds, soft. ABSENT: distended, guarding, mass, organolmegaly, rebound, tenderness Rectal exam: PRESENT: deferred Extremities exam: PRESENT: full ROM. ABSENT: calf tenderness, clubbing, pedal edema Neurological exam: PRESENT: alert, awake, oriented to person, oriented to place , oriented to time, oriented to situation, CN II-XII grossly intact. ABSENT: motor sensory deficit Psychiatric exam: PRESENT: appropriate affect, normal mood. ABSENT: homicidal ideation, suicidal ideation Skin exam: PRESENT: dry, intact, warm. ABSENT: cyanosis, rash Results Laboratory Results: 02/27/17 03:44 02/27/17 03:44 02/27/17 02/27/17 03:44 03:44 WBC 11.5 H RBC 4.07 Hgb 11.5 L Hct 35.1 L MCV 86 MCH 28.2 MCHC 32.7 RDW 13.7 Plt Count 231 Seg Neutrophils % 69.5 Lymphocytes % 18.4 Monocytes % 11.0 Eosinophils % 0.8 Basophils % 0.3 Absolute Neutrophils 8.0 Absolute Lymphocytes 2.1 Absolute Monocytes 1.3 Absolute Eosinophils 0.1 Absolute Basophils 0.0 Sodium 145.3 H Potassium 3.6 Chloride 107 Carbon Dioxide 26 Anion Gap 12 BUN 10 Creatinine 0.77 Est GFR ( Amer) > 60 Est GFR (Non-Af Amer) > 60 Glucose 132 H Calcium 9.2 Impressions: Abdomen/Pelvis CT 02/24/17 00:00 IMPRESSION: Colitis involving the distal transverse colon, splenic flexure, proximal descending colon. Assessment & Plan - Diagnosis (1) Acute ischemic colitis Is this a current diagnosis for this admission?: Yes (2) Hypertension Qualifiers: Hypertension type: essential hypertension Qualified Code(s): I10 - Essential (primary) hypertension Is this a current diagnosis for this admission?: Yes (3) Atherosclerosis of superior mesenteric artery Is this a current diagnosis for this admission?: Yes (4) Renal artery stenosis Is this a current diagnosis for this admission?: Yes (5) Hyperlipidemia Qualifiers: Hyperlipidemia type: unspecified Qualified Code(s): E78.5 - Hyperlipidemia, unspecified Is this a current diagnosis for this admission?: Yes (6) Diarrhea Qualifiers: Diarrhea type: unspecified type Qualified Code(s): R19.7 - Diarrhea , unspecified Is this a current diagnosis for this admission?: YesPlan: Discussed case with Dr. Kirby We'll treat with Imodium and Questran ; initiate a GI soft diet - Time Time Spent with patient: 25-34 minutes
[2017-02-27] MEDS ORDERED: AMLODIPINE BESYLATE 5 MG TABLET PO ONE (15:30)
[2017-02-27] MEDS: METRONIDAZOLE 500 MG TABLET PO SCH (17:28)
[2017-02-27] MEDS: LACTOBACILLUS ACIDOPHILUS 250 MG TAB PO SCH (17:28)
[2017-02-27] MEDS: CHOLESTYRAMINE/ASPARTAME 4 GM PACKET PO SCH ×2 (17:30→21:48)
[2017-02-27] MEDS: CIPROFLOXACIN HCL 500 MG TABLET PO SCH (21:48)
[2017-02-27] MEDS ORDERED: ATORVASTATIN CALCIUM 40 MG TABLET PO SCH (22:00)
[2017-02-27] MEDS: ACETAMINOPHEN 325 MG TABLET PO PRN (22:49)
[2017-02-28] MEDS: METRONIDAZOLE 500 MG TABLET PO SCH ×4 (00:35→17:52)
[2017-02-28] MEDS: CHOLESTYRAMINE/ASPARTAME 4 GM PACKET PO SCH (08:52)
[2017-02-28] MEDS ORDERED: AMLODIPINE BESYLATE 5 MG TABLET PO SCH (10:00)
[2017-02-28] MEDS: LISINOPRIL 10 MG TABLET PO SCH (10:59)
[2017-02-28] MEDS: LEVOTHYROXINE SODIUM 0.025 MG TABLET PO SCH (10:59)
[2017-02-28] MEDS: LACTOBACILLUS ACIDOPHILUS 250 MG TAB PO SCH ×2 (10:59→17:52)
[2017-02-28] MEDS: CIPROFLOXACIN HCL 500 MG TABLET PO SCH (11:02)
[2017-02-28] MEDS: BISMUTH SUBSALICYLATE 262 MG TAB.CHEW PO SCH ×2 (11:24→17:52)
[2017-02-28 17:05] VITALS: BP 172/71
--- NOTE | 2017-02-28 17:16 | PDOC DISCHARGE SUMMARY ---
General - Admit/Disc Date/PCP Admission Date/Primary Care Provider: 02/24/17 18:49 Dr Mcginnis [facility] Discharge Date: 02/28/17 - Discharge Diagnosis (1) Acute ischemic colitis Is this a current diagnosis for this admission?: YesSummary: Patient was admitted with abdominal pain and bloody diarrhea CT abdomen and pelvis showed colitis of the distal transverse,, splenic flexure and proximal descending colon CT also showed 50% narrowing of the SMA and 75% narrowing of the Left renal artery. Patient was treated with hydration, Cipro and Flagyl The abdominal pain improved Rectal bleeding resolved Patient was advised to follow-up with Dr. Kofi MALONE as an outpatient (2) Hypertension Is this a current diagnosis for this admission?: YesSummary: Patient is to continue lisinopril We have added Norvasc 5 mg daily (3) Atherosclerosis of superior mesenteric artery Is this a current diagnosis for this admission?: YesSummary: Patient was referred to vascular surgery as an outpatient She wishes to go to [facility] and will need a referral from her primary care physician Patient should start Ecotrin 81 mg daily in 2 weeks if there is no recurrence of the rectal bleeding (4) Renal artery stenosis Is this a current diagnosis for this admission?: Yes (5) Hyperlipidemia Is this a current diagnosis for this admission?: YesSummary: Prescription for Lipitor 10 mg daily was given Patient has concerns that she may not tolerate the medication well Ideally the dose should be increased to 40 mg as she has significant peripheral vascular disease (6) Diarrhea Is this a current diagnosis for this admission?: YesSummary: Patient had profuse diarrhea it did get better with Pepto-Bismol C. difficile toxin was negative stool cultures were negative 02/24/17 17:30 C. difficile Tox (PCR) NEGATIVE 02/24/17 17:30 - Final Stool - Stool Stool Culture - Final NO SALMONELLA, SHIGELLA, CAMPYLOBACTER, OR E.COLI 0157 RECOVERED. NEGATIVE FOR SHIGA TOXINS 1&2. (7) Hypothyroidism Is this a current diagnosis for this admission?: YesSummary: TSH was slightly elevated with a low T3 Synthroid 25 g daily was prescribed - Additional Information Resuscitation Status: Full Code Home Medications: Lisinopril [Prinivil 40 mg Tablet] 40 mg PO QAM 02/24/17 Metformin HCl [Metformin HCl ER] 1,000 mg PO BID 02/24/17 Amlodipine Besylate [Norvasc 5 mg Tablet] 5 mg PO DAILY #30 tablet 02/28/17 Atorvastatin Calcium [Lipitor 10 mg Tablet] 10 mg PO QHS #30 tablet 02/28/17 Bismuth Subsalicylate [Pepto-Bismol 262 Chewable Tablet] 524 mg PO Q6HP PRN #15 tab.chew 02/28/17 Ciprofloxacin HCl [Cipro 500 mg Tablet] 500 mg PO Q12 #14 tablet 02/28/17 Levothyroxine Sodium [Synthroid 0.025 mg Tablet] 0.025 mg PO DAILY #30 tablet Metronidazole [Flagyl 500 mg Tablet] 500 mg PO Q8 #21 tablet 02/28/17 History of Present Illness Patient complains of: bloody diarrhea History of Present Illness: DAY GARAY is a 66 year old female Presented with 24-hour history of bloody diarrhea and abdominal pain Upon evaluation in the ED patient was diagnosed of ischemic colitis and subsequently admitted under hospitalist service for further evaluation and care Hospital Course Hospital Course: See above Physical Exam Vital Signs: Temp Pulse Resp BP Pulse Ox 98.3 F 77 19 172/71 H 99 02/28/17 16:00 02/28/17 16:00 02/28/17 16:00 02/28/17 16:00 02/28/17 16:00 Intake & Output 02/27/17 02/28/17 03/01/17 00:59 00:59 00:59 Intake Total 3218 3389 1274 Output Total 600 900 Balance 2618 2489 1274 Weight 73.3 kg 74.2 kg 75.3 kg General appearance: PRESENT: no acute distress, well-developed, well-nourished Head exam: PRESENT: atraumatic, normocephalic Eye exam: PRESENT: conjunctiva pink, EOMI, PERRLA. ABSENT: scleral icterus Ear exam: PRESENT: normal external ear exam Mouth exam: PRESENT: moist, tongue midline Neck exam: ABSENT: carotid bruit, JVD, lymphadenopathy, thyromegaly Respiratory exam: PRESENT: clear to auscultation sorin. ABSENT: rales, rhonchi, wheezes Cardiovascular exam: PRESENT: RRR. ABSENT: diastolic murmur, rubs, systolic murmur Pulses: PRESENT: normal dorsalis pedis pul Vascular exam: PRESENT: normal capillary refill GI/Abdominal exam: PRESENT: normal bowel sounds, soft. ABSENT: distended, guarding, mass, organolmegaly, rebound, tenderness Rectal exam: PRESENT: deferred Extremities exam: PRESENT: full ROM. ABSENT: calf tenderness, clubbing, pedal edema Neurological exam: PRESENT: alert, awake, oriented to person, oriented to place , oriented to time, oriented to situation, CN II-XII grossly intact. ABSENT: motor sensory deficit Psychiatric exam: PRESENT: appropriate affect, normal mood. ABSENT: homicidal ideation, suicidal ideation Skin exam: PRESENT: dry, intact, warm. ABSENT: cyanosis, rash Results Laboratory Results: 02/27/17 03:44 02/27/17 03:44 Labs- Entire Visit 02/24/17 02/24/17 02/24/17 13:40 13:40 13:40 WBC 17.0 H RBC 5.08 Hgb 14.3 Hct 43.6 MCV 86 MCH 28.2 MCHC 32.8 RDW 13.7 Plt Count 321 Seg Neutrophils % 90.3 H Lymphocytes % 6.3 L Monocytes % 3.2 Eosinophils % 0.0 Basophils % 0.2 Absolute Neutrophils 15.4 H Absolute Lymphocytes 1.1 Absolute Monocytes 0.5 Absolute Eosinophils 0.0 Absolute Basophils 0.0 PT INR APTT Sodium 142.5 Potassium 4.9 Chloride 102 Carbon Dioxide 24 Anion Gap 17 BUN 21 H Creatinine 0.77 Est GFR ( Amer) > 60 Est GFR (Non-Af Amer) > 60 Glucose 219 H Lactic Acid 1.7 Calcium 10.2 Total Bilirubin 0.7 Direct Bilirubin 0.4 Indirect Bilirubin Not Reportable Neonat Total Bilirubin Not Reportable AST 20 ALT 34 Alkaline Phosphatase 78 Total Protein 8.2 Albumin 4.8 Triglycerides Cholesterol LDL Cholesterol Direct VLDL Cholesterol HDL Cholesterol TSH Free T4 Free T3 pg/mL Urine Color Urine Appearance Urine pH Ur Specific [place] Urine Protein Urine Glucose (UA) Urine Ketones Urine Blood Urine Nitrite Urine Bilirubin Urine Urobilinogen Ur Leukocyte Esterase Urine WBC (Auto) Urine RBC (Auto) Squamous Epi Cells Auto Urine Mucus (Auto) Urine Ascorbic Acid C. difficile Tox (PCR) 02/24/17 02/24/17 02/25/17 17:30 23:00 06:09 WBC 18.9 H RBC 4.47 Hgb 12.5 Hct 38.3 MCV 86 MCH 27.9 MCHC 32.6 RDW 13.8 Plt Count 266 Seg Neutrophils % 79.5 H Lymphocytes % 11.3 L Monocytes % 9.1 Eosinophils % 0.0 Basophils % 0.1 Absolute Neutrophils 15.1 H Absolute Lymphocytes 2.1 Absolute Monocytes 1.7 H Absolute Eosinophils 0.0 Absolute Basophils 0.0 PT INR APTT Sodium Potassium Chloride Carbon Dioxide Anion Gap BUN Creatinine Est GFR ( Amer) Est GFR (Non-Af Amer) Glucose Lactic Acid Calcium Total Bilirubin Direct Bilirubin Indirect Bilirubin Neonat Total Bilirubin AST ALT Alkaline Phosphatase Total Protein Albumin Triglycerides Cholesterol LDL Cholesterol Direct VLDL Cholesterol HDL Cholesterol TSH Free T4 Free T3 pg/mL Urine Color STRAW Urine Appearance CLEAR Urine pH 5.0 Ur Specific [place] 1.035 Urine Protein NEGATIVE Urine Glucose (UA) NEGATIVE Urine Ketones NEGATIVE Urine Blood SMALL H Urine Nitrite NEGATIVE Urine Bilirubin NEGATIVE Urine Urobilinogen NEGATIVE Ur Leukocyte Esterase LARGE H Urine WBC (Auto) 20 Urine RBC (Auto) 3 Squamous Epi Cells Auto 1 Urine Mucus (Auto) RARE Urine Ascorbic Acid NEGATIVE C. difficile Tox (PCR) NEGATIVE 02/25/17 02/25/17 02/25/17 06:09 06:09 06:09 WBC RBC Hgb Hct MCV MCH MCHC RDW Plt Count Seg Neutrophils % Lymphocytes % Monocytes % Eosinophils % Basophils % Absolute Neutrophils Absolute Lymphocytes Absolute Monocytes Absolute Eosinophils Absolute Basophils PT 13.9 INR 1.04 APTT 29.6 Sodium 142.8 Potassium 4.2 Chloride 107 Carbon Dioxide 23 Anion Gap 13 BUN 12 Creatinine 0.76 Est GFR ( Amer) > 60 Est GFR (Non-Af Amer) > 60 Glucose 165 H Lactic Acid Calcium 9.2 Total Bilirubin 0.6 Direct Bilirubin 0.1 Indirect Bilirubin Not Reportable Neonat Total Bilirubin Not Reportable AST 19 ALT 26 Alkaline Phosphatase 52 Total Protein 6.3 Albumin 3.7 Triglycerides 193 H Cholesterol 254.94 H LDL Cholesterol Direct 152 H VLDL Cholesterol 38.6 H HDL Cholesterol 40 TSH 5.37 H Free T4 Free T3 pg/mL Urine Color Urine Appearance Urine pH Ur Specific [place] Urine Protein Urine Glucose (UA) Urine Ketones Urine Blood Urine Nitrite Urine Bilirubin Urine Urobilinogen Ur Leukocyte Esterase Urine WBC (Auto) Urine RBC (Auto) Squamous Epi Cells Auto Urine Mucus (Auto) Urine Ascorbic Acid C. difficile Tox (PCR) 02/25/17 02/25/17 02/27/17 06:09 22:50 03:44 WBC 14.6 H 11.5 H RBC 3.92 4.07 Hgb 11.0 L 11.5 L Hct 33.6 L 35.1 L MCV 86 86 MCH 28.0 28.2 MCHC 32.7 32.7 RDW 13.8 13.7 Plt Count 219 231 Seg Neutrophils % 69.5 Lymphocytes % 18.4 Monocytes % 11.0 Eosinophils % 0.8 Basophils % 0.3 Absolute Neutrophils 8.0 Absolute Lymphocytes 2.1 Absolute Monocytes 1.3 Absolute Eosinophils 0.1 Absolute Basophils 0.0 PT INR APTT Sodium Potassium Chloride Carbon Dioxide Anion Gap BUN Creatinine Est GFR ( Amer) Est GFR (Non-Af Amer) Glucose Lactic Acid Calcium Total Bilirubin Direct Bilirubin Indirect Bilirubin Neonat Total Bilirubin AST ALT Alkaline Phosphatase Total Protein Albumin Triglycerides Cholesterol LDL Cholesterol Direct VLDL Cholesterol HDL Cholesterol TSH Free T4 0.99 Free T3 pg/mL 2.55 L Urine Color Urine Appearance Urine pH Ur Specific [place] Urine Protein Urine Glucose (UA) Urine Ketones Urine Blood Urine Nitrite Urine Bilirubin Urine Urobilinogen Ur Leukocyte Esterase Urine WBC (Auto) Urine RBC (Auto) Squamous Epi Cells Auto Urine Mucus (Auto) Urine Ascorbic Acid C. difficile Tox (PCR) 02/27/17 03:44 WBC RBC Hgb Hct MCV MCH MCHC RDW Plt Count Seg Neutrophils % Lymphocytes % Monocytes % Eosinophils % Basophils % Absolute Neutrophils Absolute Lymphocytes Absolute Monocytes Absolute Eosinophils Absolute Basophils PT INR APTT Sodium 145.3 H Potassium 3.6 Chloride 107 Carbon Dioxide 26 Anion Gap 12 BUN 10 Creatinine 0.77 Est GFR ( Amer) > 60 Est GFR (Non-Af Amer) > 60 Glucose 132 H Lactic Acid Calcium 9.2 Total Bilirubin Direct Bilirubin Indirect Bilirubin Neonat Total Bilirubin AST ALT Alkaline Phosphatase Total Protein Albumin Triglycerides Cholesterol LDL Cholesterol Direct VLDL Cholesterol HDL Cholesterol TSH Free T4 Free T3 pg/mL Urine Color Urine Appearance Urine pH Ur Specific [place] Urine Protein Urine Glucose (UA) Urine Ketones Urine Blood Urine Nitrite Urine Bilirubin Urine Urobilinogen Ur Leukocyte Esterase Urine WBC (Auto) Urine RBC (Auto) Squamous Epi Cells Auto Urine Mucus (Auto) Urine Ascorbic Acid C. difficile Tox (PCR) Impressions: Abdomen/Pelvis CT 02/24/17 00:00 IMPRESSION: Colitis involving the distal transverse colon, splenic flexure, proximal descending colon. Plan Discharge Plan: Discharge home Time Spent: Greater than 30 Minutes
== END 2017-02-28 18:15 | disposition home or self-care (01) | DRG 395 ==
LOC: ER 12:42 → UNDOADMIN 17:37 → EH 17:37 → 3S 21:15 → EH 21:15 → 4N 02-26 18:41
PROVIDERS: ADMIT Emergency Medicine; ATTEND Emergency Medicine
DX: K55.039 Acute (reversible) ischemia of large intestine, extent unspecified (principal); I10 Essential (primary) hypertension; E11.9 Type 2 diabetes mellitus without complications; I70.1 Atherosclerosis of renal artery; K55.1 Chronic vascular disorders of intestine; E78.5 Hyperlipidemia, unspecified; K21.9 Gastro-esophageal reflux disease without esophagitis; Z90.710 Acquired absence of both cervix and uterus; Z79.84 Long term (current) use of oral hypoglycemic drugs
CPT/HCPCS: 36415; 74177; 80048; 80053; 80061; 81001; 83605; 84439; 84443; 84481; 85025; 85027; 85610; 85730; 87040; 87045; 87205; 87493; 93005; 93010; 96361; 96374; 96375; 96376; 99285; J0360; J0744; J1956; J2270; J2405; J3490; J7030; S0164